=== PATIENT | female | born 1985 | race Two or more races ===

== ENCOUNTER 2017-04-29 11:48 | Outpatient (CLI) | payer OTHER ==
[~2017-04-29 11:48] MED LIST: INTESTINEX1 CA1; LUTERA1 TAB; MELOXICAM15 MG PO; PRILOSEC20 MG
== END 2017-04-29 12:13 | disposition home or self-care (01) ==
LOC: RAD 11:48
DX: M25.562 Pain in left knee (principal)

== ENCOUNTER 2017-05-20 10:51 | Outpatient (CLI) | payer OTHER | END 2017-05-20 10:55 | disposition home or self-care (01) | LOC: SONOGRAMA 10:51 | DX: M25.532 Pain in left wrist (principal); R53.1 Weakness ==

== ENCOUNTER 2018-11-05 16:28 | Emergency (ER) | payer OTHER ==
[~2018-11-05] VITALS: Ht 170.2 cm; Wt 54.4 kg
[2018-11-05] MEDS ORDERED: LEXAPRO20 MG (16:33)
== END 2018-11-05 19:14 | disposition home or self-care (01) ==
LOC: ER 16:28
DX: I86.3 Vulval varices (principal)

== ENCOUNTER 2019-05-12 10:00 | Emergency (ER) | payer OTHER ==
[~2019-05-12] VITALS: Ht 165.1 cm; Wt 48.5 kg
[~2019-05-12 10:00] MED LIST changes: +DICLOFENAC POTA50 MG PO; +LEXAPRO20 MG
== END 2019-05-12 14:52 | disposition home or self-care (01) ==
LOC: ER 10:00
DX: S06.0X9A Concussion with loss of consciousness of unspecified duration, initial encounter (principal); W18.39XA Other fall on same level, initial encounter; Y93.89 Activity, other specified; Y92.89 Other specified places as the place of occurrence of the external cause; Y99.8 Other external cause status

== ENCOUNTER 2023-11-24 09:24 | Outpatient (CLI) | payer OTHER | END 2023-11-24 09:31 | disposition home or self-care (01) | LOC: SONOGRAMA 09:24 | PROVIDERS: ATTEND Obstetrics & Gynecology Gynecology | DX: R10.2 Pelvic and perineal pain (principal) ==